=== PATIENT | male | born 1985 | race Caucasian/White ===

== ENCOUNTER 2016-05-02 15:27 | Inpatient (IN) | payer BC, OTHER ==
[~2016-05-02] VITALS: Ht 172.7 cm; Wt 90.4 kg
[~2016-05-02 15:27] MED LIST: /WARF5TA; CEFT500T; ENOX40SY; No Historical Meds; ZITH250T; ZITH500T
[2016-05-02 16:46] LABS: MEAN CORPUSCULAR HEMOGLOBIN 29.2 pg (27.0-33.0); MEAN CORPUSCULAR HGB CONC 34.5 g/dl (32.0-36.5); MEAN CORPUSCULAR VOLUME 84.8 fl (80.0-96.0); RED CELL DISTRIBUTION WIDTH 12.6 % (11.5-14.5); WHITE BLOOD COUNT 6.9 K/mm3 (4.0-10.0)
[2016-05-02 16:55] LABS: AMPHETAMINES LEVEL URINE NEGATIVE (NEGATIVE); BENZODIAZEPINES URINE POSITIVE (NEGATIVE); COCAINE METABOLITE URINE NEGATIVE (NEGATIVE); CONTROL LINE INT CTR LINE PRESENT; METHADONE URINE NEGATIVE (NEGATIVE); OPIATES URINE NEGATIVE (NEGATIVE); TRICYCLIC ANTIDEPRESS URINE NEGATIVE (NEGATIVE)
[2016-05-02 17:19] LABS: ALBUMIN 4.3 GM/DL (3.2-5.2); ALBUMIN/GLOBULIN RATIO 1.54 (1.00-1.93); ALKALINE PHOSPHATASE 67 U/L (45-117); ALT/SGPT 40 U/L (12-78); ANION GAP 6 MEQ/L (8-16); AST/SGOT 23 U/L (15-37); BILIRUBIN,DIRECT 0.1 MG/DL (0.0-0.2); BILIRUBIN,TOTAL 0.4 MG/DL (0.2-1.0); BLOOD UREA NITROGEN 13 MG/DL (7-18); CALCIUM LEVEL 8.8 MG/DL (8.5-10.1); CARBON DIOXIDE LEVEL 34 MEQ/L (21-32); CHLORIDE LEVEL 103 MEQ/L (98-107); CREATININE FOR GFR 0.96 MG/DL (0.70-1.30); GLOMERULAR FILTRATION RATE > 60.0 (>60); GLUCOSE, FASTING 83 MG/DL (70-105); POTASSIUM SERUM 4.4 MEQ/L (3.5-5.1); SODIUM LEVEL 143 MEQ/L (136-145); TOTAL PROTEIN 7.1 GM/DL (6.4-8.2)
--- NOTE | 2016-05-03 07:35 | ECGEPIP ---
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
[2016-05-03] MEDS ORDERED: IBUPROFEN 600 MG TAB As Ordered ONE (09:51)
[2016-05-03] MEDS ORDERED: cloNIDine HCL 0.2 MG/24 HR PATCH TOP ONE (13:00)
[2016-05-03] MEDS ORDERED: SUBO8MIS SL (14:00)
[2016-05-03] MEDS ORDERED: LEXA1TAB2 PO (14:00)
[2016-05-03] MEDS ORDERED: ONDANSETRON 4 MG ORAL DISINTEGRATING TAB (S0181) As Ordered ONE (16:34)
--- NOTE | 2016-05-03 16:58 | EDDOCDS ---
Physician Documentation [facility] Name: Mehrdad Thurman Age: 30 yrs Sex: Male : 1985 Arrival Date: 05/02/2016 Time: 15:27 Bed U4 [facility] MD: Pina Plasencia Disposition: 05/03/16 12:42 Hospitalization ordered by Scar Diaz for Inpatient Admission. Preliminary diagnosis is Major depressive disorder, single episode. - Bed requested for Admit. - Status is Inpatient Admission. rs3 - Condition is Stable. - Problem is an acute exacerbation. - Symptoms are unchanged. Historical: - Allergies: SULFA (SULFONAMIDES); - Home Meds: 1. Suboxone 8-2 mg SL film 1 film once daily (Last dose: 05/02/2016) 2. Lexapro 10 mg Oral tab 1 tab once daily (Last dose: 05/01/2016) - PMHx: Depression; Heroine addict; - PSHx: Vasectomy; - Social history: Smoking status: Patient uses tobacco products, current every day smoker. No barriers to communication noted, The patient speaks fluent Italian. - Family history: Not pertinent. - : The pt / caregiver states he / she is not on anticoagulants. Home medication list is obtained from the patient. - Exposure Risk Screening:: None identified. Vital Signs: 05/02 15:29 BP 133 / 76; Pulse 95; Resp 18 S; Temp 96.8(O); Pulse Ox 100% on R/A; Weight 90.72 kg / gr2 200 lbs (R); Height 5 ft. 8 in. (172.72 cm) (R); Pain 6/10; 19:04 Pulse 59; Resp 16; Temp 97.1(O); Pulse Ox 97% on R/A; ld5 19:05 BP 132 / 82 LA (man/); ld5 19:20 BP 153 / 90 (auto/); ko2 19:22 Pulse 60 MON; Pulse Ox 98% ; ko2 19:30 BP 127 / 80 (auto/); ko2 19:31 Pulse 60 MON; Pulse Ox 96% ; ko2 20:00 BP 117 / 67 (auto/); ko2 20:02 Pulse 61 MON; Pulse Ox 95% ; ko2 20:30 BP 114 / 68 (auto/); ko2 20:30 Pulse 63 MON; Pulse Ox 94% ; ko2 21:00 BP 116 / 63 (auto/); ko2 21:00 Pulse 66 MON; Pulse Ox 93% ; ko2 22:00 BP 105 / 58 (auto/); ko2 22:01 Pulse 63 MON; Pulse Ox 96% ; ko2 22:30 BP 113 / 65 (auto/); ko2 22:30 Pulse 65 MON; Pulse Ox 93% ; ko2 23:00 BP 113 / 65 (auto/); ko2 23:00 Pulse 63 MON; Pulse Ox 95% ; ko2 23:30 BP 120 / 65 (auto/); ko2 23:30 Pulse 68 MON; Pulse Ox 93% ; ko2 05/03 00:00 BP 105 / 60 (auto/); ko2 00:00 Pulse 71 MON; Pulse Ox 96% ; ko2 00:30 BP 104 / 66 (auto/); ko2 00:31 Pulse 68 MON; Pulse Ox 95% ; ko2 01:00 BP 113 / 69 (auto/); ko2 01:01 Pulse 62 MON; Pulse Ox 97% ; ko2 01:30 BP 114 / 64 (auto/); ko2 01:30 Pulse 68 MON; Pulse Ox 94% ; ko2 02:00 BP 109 / 68 (auto/); ko2 02:01 Pulse 61 MON; Pulse Ox 94% ; ko2 02:30 BP 117 / 73 (auto/); ko2 02:31 Pulse 58 MON; Pulse Ox 94% ; ko2 03:00 BP 117 / 73 (auto/); ko2 03:00 Pulse 60 MON; ko2 03:30 BP 116 / 78 (auto/); ko2 03:30 Pulse 56 MON; ko2 06:22 BP 101 / 65; Pulse 87; Resp 16; Temp 96.8(TE); Pulse Ox 95% on R/A; Pain 0/10; rw1 12:30 BP 139 / 88; Pulse 83; Resp 18; Temp 98(T); Pulse Ox 98% on R/A; Pain 0/10; rs3 16:29 BP 140 / 60; Pulse 60; Resp 18; Temp 97.5; Pulse Ox 98% on R/A; Pain 0/10; tmm1 05/02 15:29 Body Mass Index 30.41 (90.72 kg, 172.72 cm) gr2 16:29 pt states he is feeling "a little nauseaous". mental health orderly Bertha Johnson notified . tmm1 MDM: 05/02 16:17 Consult PFS/PSA/Label Fuser Tender ordered. le 16:17 Consult PFS/PSA/Label Fuser Tender: Patient's case requires discussion with on-call le Psychiatrist ordered. 16:17 PSA/PFS to call Nursing Food Beverage Manager, to enter patient data on [place] Safe Act if patient le involuntarily admitted or transferred for SI or HI ordered. 16:17 Confirm accurate psychiatric medication list and times of last dosage ordered. le 16:17 Detain Pt Until Medically/PFS Cleared ordered. le 16:18 Acetaminophen Level Ordered. EDMS 16:18 Basic Metabolic Profile Ordered. EDMS 16:18 Complete Blood Count Ordered. EDMS 16:18 Drug Eval Toxicology ED Only Ordered. EDMS 16:18 Ethyl Alcohol (ethanol) Ordered. EDMS 16:18 Liver Profile Ordered. EDMS 16:18 Salicylate Level Ordered. EDMS 16:18 Thyroid Stimulating Hormone Ordered. EDMS 16:35 REGULAR DIET PLASTIC ORDONEZ+DIET ordered. EDMS 18:32 Consult PFS/PSA/Label Fuser Tender complete. rb 18:55 Drug Eval Toxicology ED Only Reviewed. le 19:03 Call Poison Control ordered. le 19:03 Acetaminophen Level Reviewed. le 19:03 Basic Metabolic Profile Reviewed. le 19:03 Salicylate Level Reviewed. le 19:03 Complete Blood Count Reviewed. le 19:03 Ethyl Alcohol (ethanol) Reviewed. le 19:03 Liver Profile Reviewed. le 19:03 Thyroid Stimulating Hormone Reviewed. le 20:32 ECG WITH READING ER PHYS+CARDIAG ordered. EDMS 05/03 01:20 Financial registration complete. pm4 01:31 [facility] Payment Agreement was scanned into [employer] and attached to record. pm4 04:07 REGULAR DIET PLASTIC ORDONEZ+DIET ordered. EDMS 05:31 Consult PFS/PSA/Label Fuser Tender: Patient's case requires discussion with on-call jfb Psychiatrist complete. 05:32 PSA/PFS to call Nursing Food Beverage Manager, to [place] patient data [place] Safe [place] if patient jfb involuntarily admitted or transferred for SI or HI complete. 05:34 [facility] Legal paperwork was scanned into [employer] and attached to record. jfb 09:53 Ibuprofen 600 mg PO once ordered. js13 12:23 cloNIDine Patch 0.2 mg/24 hr 1 patches Transdermal once ordered. sd1 12:29 REGULAR DIET PLASTIC ORDONEZ+DIET ordered. EDMS 13:01 [facility]: ordered. EDMS 13:59 [facility] Legal paperwork was scanned into [employer] and attached to record. cs 15:53 [facility] Legal paperwork was scanned into [employer] and attached to record. cs 16:04 REGULAR DIET ROOM SERVICE ED+DIET ordered. EDMS 16:32 Ondansetron ODT Oral Disintegrating Tablet 4 mg PO once ordered. sd1 Administered Medications: 09:54 Drug: Ibuprofen 600 mg [ibuprofen 600 mg tablet (1 tabs)] Route: PO; js13 13:22 Drug: cloNIDine Patch 0.2 mg/24 hr 1 patches {Note: right shoulder blade.} Route: rs3 Transdermal; Site: right upper arm; 16:42 Drug: Ondansetron ODT 4 mg [ondansetron 4 mg disintegrating tablet (1 tabs)] Route: PO; rs3 Signatures: Dispatcher [employer] EDVT Keli Oro MD MD sd1 Mateo Spangler, RN RN dwg Leesa Guzmán, PSA PSA rb Cornelius Rangel, PSA PSA cs Deena Grant, POISER POISER Mary Anne Kessler,RN RN rs3 Faviola Barker, PSA PSA jfMaria Del Carmen Timmons RN RN js13 Jennifer RamosRN RN ko2 Rainer Douglas, Reg Reg pm4 The chart was reviewed and I authenticate all verbal orders and agree with the evaluation and treatment provided.Attachments: 01:31 [facility] Payment Agreement pm4 MTDD
--- NOTE | 2016-05-03 16:58 | EDDOCDS ---
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 Status: F Test: ANION GAP; Value: 6; Range: 8-16; Abnormal: Below low normal; Units: MEQ/L; Status: F Test: CALCIUM LEVEL; Value: 8.8; Range: 8.5-10.1; Units: MG/DL; Status: F Test Note: ; Units are mL/min/1.73 m2 Chronic Kidney Disease Staging per NKF: Stage I & II GFR >=60 Normal to Mildly Decreased Stage III GFR 30-59 Moderately Decreased Stage IV GFR 15-29 Severely Decreased Stage V GFR <15 Very Little GFR Left ESRD GFR <15 on CORRECTIONS IDENTIFICATION TECHNICIAN Lab Order: Complete Blood Count; SPEC'M 05/02/16 16:11 Test: WHITE BLOOD COUNT; Value: 6.9; Range: 4.0-10.0; Units: K/mm3; Status: F Test: RED BLOOD COUNT; Value: 5.45; Range: 4.30-6.10; Units: M/mm3; Status: F Test: HEMOGLOBIN; Value: 15.9; Range: 14.0-18.0; Units: g/dl; Status: F Test: HEMATOCRIT; Value: 46.2; Range: 42.0-52.0; Units: %; Status: F Test: MEAN CORPUSCULAR VOLUME; Value: 84.8; Range: 80.0-96.0; Units: fl; Status: F Test: MEAN CORPUSCULAR HEMOGLOBIN; Value: 29.2; Range: 27.0-33.0; Units: pg; Status: F Test: MEAN CORPUSCULAR HGB CONC; Value: 34.5; Range: 32.0-36.5; Units: g/dl; Status: F Test: RED CELL DISTRIBUTION WIDTH; Value: 12.6; Range: 11.5-14.5; Units: %; Status: F Test: PLATELET COUNT, AUTOMATED; Value: 270; Range: 150-450; Units: k/mm3; Status: F Lab Order: Drug Eval Toxicology ED Only; SPEC'M 05/02/16 16:11 Test: AMPHETAMINES LEVEL URINE; Value: NEGATIVE; Range: NEGATIVE; Status: F Test: BARBITURATES URINE; Value: NEGATIVE; Range: NEGATIVE; Status: F Test: BENZODIAZEPINES URINE; Value: POSITIVE; Range: NEGATIVE; Abnormal: Above high normal; Status: F Test: CANNABINOIDS URINE; Value: NEGATIVE; Range: NEGATIVE; Status: F Test: COCAINE METABOLITE URINE; Value: NEGATIVE; Range: NEGATIVE; Status: F Test: METHADONE URINE; Value: NEGATIVE; Range: NEGATIVE; Status: F Test: OPIATES URINE; Value: NEGATIVE; Range: NEGATIVE; Status: F Test: TRICYCLIC ANTIDEPRESS URINE; Value: NEGATIVE; Range: NEGATIVE; Status: F Test Note: ; ALL PRESUMPTIVE POSITIVE FINDINGS ARE UNCONFIRMED NORMAL VALUES THRESHOLD IN NG/ML AMPHETAMINES 1000 METHAMPHETAMINES 1000 BARBITURATES 300 BENZODIAZEPINES 300 CANNABINOIDS (THC) 50 COCAINE METABOLITE 300 METHADONE 300 OPIATES 300 PHENCYCLIDINE 25 TRICYCLIC ANTIDEPRESSANTS 1000 RESULTS ARE FOR MEDICAL PURPOSES ONLY. ALL URINE SPECIMENS WILL BE SAVED FOR 3 DAYS. IF CONFIRMATION OF A PRESUMPTIVE POSTIVE SCREEN RESULT IS DESIRED, CALL CHEMISTRY ([phone]) AND REQUEST URINE TO BE SENT TO REFERENCE LAB. FOR A LIST OF CLOSELY RELATED COMPOUNDS PLEASE CALL THE LAB. Lab Order: Ethyl Alcohol (ethanol); SPEC'M 05/02/16 16:11 Test: ETHYL ALCOHOL (ETHANOL); Value: 0.003; Range: 0.000-0.010; Units: %; Status: F Lab Order: Liver Profile; SPEC'M 05/02/16 16:11 Test: AST/SGOT; Value: 23; Range: 15-37; Units: U/L; Status: F Test: ALT/SGPT; Value: 40; Range: 12-78; Units: U/L; Status: F Test: ALKALINE PHOSPHATASE; Value: 67; Range: 45-117; Units: U/L; Status: F Test: BILIRUBIN,TOTAL; Value: 0.4; Range: 0.2-1.0; Units: MG/DL; Status: F Test: BILIRUBIN,DIRECT; Value: 0.1; Range: 0.0-0.2; Units: MG/DL; Status: F Test: TOTAL PROTEIN; Value: 7.1; Range: 6.4-8.2; Units: GM/DL; Status: F Test: ALBUMIN; Value: 4.3; Range: 3.2-5.2; Units: GM/DL; Status: F Test: ALBUMIN/GLOBULIN RATIO; Value: 1.54; Range: 1.00-1.93; Status: F Lab Order: Salicylate Level; SPEC'M 05/02/16 16:11 Test: SALICYLATE LEVEL; Value: 2.8; Range: 5.0-30.0; Abnormal: Below low normal; Units: MG/DL; Status: F Lab Order: Thyroid Stimulating Hormone; SPEC'M 05/02/16 16:11 Test: THYROID STIMULATING HORMONE; Value: 1.660; Range: 0.358-3.740; Units: uIU/ML; Status: F Radiology Order: EKG-ADULT Test: EKG-ADULT REASON FOR EXAMINATION: OD xanax; Stationary ECG Study; [facility] - ED; ; Test Date: 2016-05-02; Pat Name: LIZANDRO THURMAN Department:; Room: -; Gender: M 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 sd1 16:54 Discharge Assessment: patient administered narcotics - no. The following High Risk rs3 Discharge criteria are identified: None. Admitted to Psych accompanied by tech, family with patient, via wheelchair, with chart. Condition: stable. No special radiology studies were completed. Property :Personal belongings accompany Pt. 16:57 Patient left the ED. rs3 Signatures: Dispatcher [employer] EDMS Keli Oro MD MD sd1 Mateo Spangler, RN Christie Ponce RN Devika Cody, RN SHAYNA [facility] Ramirez, Leesa, PSA PSA rb Cornelius Rangel, PSA PSA Rainer Galan, Security Aide AnkitJoel Alvarenga tr Jossy Bravo,RN RN kr3 Donald Teran,PRODUCTION SAMPLER PRODUCTION SAMPLER rw1 Maxime Ritter, FREIGHT HUSTLER FREIGHT HUSTLER kb5 Deena Grant, NUCLEAR PHYSICIST NUCLEAR PHYSICIST Mary Anne KesslerRN RN rs3 Faviola Barker, PSA PSA jfb Pina Madrid,RN SHAYNA ld5 Maria Del Carmen Willams,RN RN js13 Richie Balderas dpm Jaylin Murguia, FREIGHT HUSTLER FREIGHT HUSTLER tmm1 Russ Velarde gr2 Jennifer RamosRN RN ko2 Kecia Nicholson,RN RN af2 Rainer Douglas, Reg Reg pm4 MTDD
[2016-05-03 17:09] VITALS: BP 140/60
[2016-05-03] MEDS ORDERED: NEUR300C PO (18:05)
[2016-05-03] MEDS ORDERED: MAALOX 30 ML SUSP *UDC PO PRN (18:30)
[2016-05-03] MEDS ORDERED: MOM 30ML SUSPENSION UDC PO PRN (18:30)
[2016-05-03] MEDS ORDERED: LORazepam 2 MG TAB PO PRN (18:30)
[2016-05-03 18:40] VITALS: BP 113/64
[2016-05-03] MEDS: VENLAFAXINE 37.5 MG TAB PO SCH (18:56)
[2016-05-03] MEDS: BUPRENORPHINE/NALOXONE 8-2MG SUBLINGUAL TABLET(SUBOXONE) SL SCH (18:56)
[2016-05-03] MEDS ORDERED: LORazepam 2 MG TAB PO ONE (19:00)
[2016-05-03] MEDS: GABAPENTIN 300 MG CAP PO SCH (22:28)
[2016-05-04 06:27] VITALS: BP 96/52
[2016-05-04 08:00] VITALS: BP 96/52
[2016-05-04] MEDS: BUPRENORPHINE/NALOXONE 8-2MG SUBLINGUAL TABLET(SUBOXONE) SL SCH (09:02)
[2016-05-04] MEDS: GABAPENTIN 300 MG CAP PO SCH ×3 (09:02→20:35)
[2016-05-04] MEDS: VENLAFAXINE 37.5 MG TAB PO SCH (09:02)
[2016-05-04] MEDS: NICOTINE 21MG/24HR 1 EA TRANSDERMAL TD SCH (11:35)
[2016-05-04 18:03] VITALS: BP 126/62
[2016-05-04 18:33] VITALS: BP 126/62
[2016-05-04 20:38] VITALS: BP 139/75
[2016-05-04] MEDS: traZODone 50 MG TAB PO PRN (21:33)
[2016-05-05 06:11] VITALS: BP 119/66
[2016-05-05] MEDS: NICOTINE 21MG/24HR 1 EA TRANSDERMAL TD SCH (08:22)
[2016-05-05] MEDS: GABAPENTIN 300 MG CAP PO SCH ×3 (08:23→20:48)
[2016-05-05] MEDS: VENLAFAXINE 37.5 MG TAB PO SCH (08:23)
[2016-05-05] MEDS: BUPRENORPHINE/NALOXONE 8-2MG SUBLINGUAL TABLET(SUBOXONE) SL SCH (08:23)
[2016-05-05 08:49] VITALS: BP 119/66
--- NOTE | 2016-05-05 17:58 | EDDOCDS ---
Physician Documentation [facility] Name: Mehrdad Thurman Age: 30 yrs Sex: Male : 1985 Arrival Date: 05/02/2016 Time: 15:27 Bed U4 [facility] MD: Pina Plasencia Disposition: 05/03/16 12:42 Hospitalization ordered by Scar Diaz for Inpatient Admission. Preliminary diagnosis is Major depressive disorder, single episode. - Bed requested for Admit. - Status is Inpatient Admission. rs3 - Condition is Stable. - Problem is an acute exacerbation. - Symptoms are unchanged. Historical: - Allergies: SULFA (SULFONAMIDES); - Home Meds: 1. Suboxone 8-2 mg SL film 1 film once daily (Last dose: 05/02/2016) 2. Lexapro 10 mg Oral tab 1 tab once daily (Last dose: 05/01/2016) - PMHx: Depression; Heroine addict; - PSHx: Vasectomy; - Social history: Smoking status: Patient uses tobacco products, current every day smoker. No barriers to communication noted, The patient speaks fluent Swedish. - Family history: Not pertinent. - : The pt / caregiver states he / she is not on anticoagulants. Home medication list is obtained from the patient. - Exposure Risk Screening:: None identified. Vital Signs: 05/02 15:29 BP 133 / 76; Pulse 95; Resp 18 S; Temp 96.8(O); Pulse Ox 100% on R/A; Weight 90.72 kg / gr2 200 lbs (R); Height 5 ft. 8 in. (172.72 cm) (R); Pain 6/10; 19:04 Pulse 59; Resp 16; Temp 97.1(O); Pulse Ox 97% on R/A; ld5 19:05 BP 132 / 82 LA (man/); ld5 19:20 BP 153 / 90 (auto/); ko2 19:22 Pulse 60 MON; Pulse Ox 98% ; ko2 19:30 BP 127 / 80 (auto/); ko2 19:31 Pulse 60 MON; Pulse Ox 96% ; ko2 20:00 BP 117 / 67 (auto/); ko2 20:02 Pulse 61 MON; Pulse Ox 95% ; ko2 20:30 BP 114 / 68 (auto/); ko2 20:30 Pulse 63 MON; Pulse Ox 94% ; ko2 21:00 BP 116 / 63 (auto/); ko2 21:00 Pulse 66 MON; Pulse Ox 93% ; ko2 22:00 BP 105 / 58 (auto/); ko2 22:01 Pulse 63 MON; Pulse Ox 96% ; ko2 22:30 BP 113 / 65 (auto/); ko2 22:30 Pulse 65 MON; Pulse Ox 93% ; ko2 23:00 BP 113 / 65 (auto/); ko2 23:00 Pulse 63 MON; Pulse Ox 95% ; ko2 23:30 BP 120 / 65 (auto/); ko2 23:30 Pulse 68 MON; Pulse Ox 93% ; ko2 05/03 00:00 BP 105 / 60 (auto/); ko2 00:00 Pulse 71 MON; Pulse Ox 96% ; ko2 00:30 BP 104 / 66 (auto/); ko2 00:31 Pulse 68 MON; Pulse Ox 95% ; ko2 01:00 BP 113 / 69 (auto/); ko2 01:01 Pulse 62 MON; Pulse Ox 97% ; ko2 01:30 BP 114 / 64 (auto/); ko2 01:30 Pulse 68 MON; Pulse Ox 94% ; ko2 02:00 BP 109 / 68 (auto/); ko2 02:01 Pulse 61 MON; Pulse Ox 94% ; ko2 02:30 BP 117 / 73 (auto/); ko2 02:31 Pulse 58 MON; Pulse Ox 94% ; ko2 03:00 BP 117 / 73 (auto/); ko2 03:00 Pulse 60 MON; ko2 03:30 BP 116 / 78 (auto/); ko2 03:30 Pulse 56 MON; ko2 06:22 BP 101 / 65; Pulse 87; Resp 16; Temp 96.8(TE); Pulse Ox 95% on R/A; Pain 0/10; rw1 12:30 BP 139 / 88; Pulse 83; Resp 18; Temp 98(T); Pulse Ox 98% on R/A; Pain 0/10; rs3 16:29 BP 140 / 60; Pulse 60; Resp 18; Temp 97.5; Pulse Ox 98% on R/A; Pain 0/10; tmm1 05/02 15:29 Body Mass Index 30.41 (90.72 kg, 172.72 cm) gr2 16:29 pt states he is feeling "a little nauseaous". data entry Bertha Johnson notified . tmm1 MDM: 05/02 16:17 Consult PFS/PSA/Design Consultant ordered. le 16:17 Consult PFS/PSA/Design Consultant: Patient's case requires discussion with on-call le Psychiatrist ordered. 16:17 PSA/PFS to call Nursing Founder And Chief Technical Officer, to enter patient data on [place] if patient le involuntarily admitted or transferred for SI or HI ordered. 16:17 Confirm accurate psychiatric medication list and times of last dosage ordered. le 16:17 Detain Pt Until Medically/PFS Cleared ordered. le 16:18 Acetaminophen Level Ordered. EDMS 16:18 Basic Metabolic Profile Ordered. EDMS 16:18 Complete Blood Count Ordered. EDMS 16:18 Drug Eval Toxicology ED Only Ordered. EDMS 16:18 Ethyl Alcohol (ethanol) Ordered. EDMS 16:18 Liver Profile Ordered. EDMS 16:18 Salicylate Level Ordered. EDMS 16:18 Thyroid Stimulating Hormone Ordered. EDMS 16:35 REGULAR DIET PLASTIC ORDONEZ+DIET ordered. EDMS 18:32 Consult PFS/PSA/Design Consultant complete. rb 18:55 Drug Eval Toxicology ED Only Reviewed. le 19:03 Call Poison Control ordered. le 19:03 Acetaminophen Level Reviewed. le 19:03 Basic Metabolic Profile Reviewed. le 19:03 Salicylate Level Reviewed. le 19:03 Complete Blood Count Reviewed. le 19:03 Ethyl Alcohol (ethanol) Reviewed. le 19:03 Liver Profile Reviewed. le 19:03 Thyroid Stimulating Hormone Reviewed. le 20:32 ECG WITH READING ER PHYS+CARDIAG ordered. EDMS 05/03 01:20 Financial registration complete. pm4 01:31 [facility] Payment Agreement was scanned into [employer] and attached to record. pm4 04:07 REGULAR DIET PLASTIC ORDONEZ+DIET ordered. EDMS 05:31 Consult PFS/PSA/Design Consultant: Patient's case requires discussion with on-call jfb Psychiatrist complete. 05:32 PSA/PFS to call Nursing Founder And Chief Technical Officer, to enter [place] if patient jfb involuntarily admitted or transferred for SI or HI complete. 05:34 [facility] Legal paperwork was scanned into [employer] and attached to record. jfb 09:53 Ibuprofen 600 mg PO once ordered. js13 12:23 cloNIDine Patch 0.2 mg/24 hr 1 patches Transdermal once ordered. sd1 12:29 REGULAR DIET PLASTIC ORDONEZ+DIET ordered. EDMS 13:01 Admit to [facility]: ordered. EDMS 13:59 [facility] Legal paperwork was scanned into [employer] and attached to record. cs 15:53 [facility] Legal paperwork was scanned into [employer] and attached to record. cs 16:04 REGULAR DIET ROOM SERVICE ED+DIET ordered. EDMS 16:32 Ondansetron ODT Oral Disintegrating Tablet 4 mg PO once ordered. sd1 05/04 08:54 T-Sheet-- Draft Copy was scanned into [employer] and attached to record. [facility] 09:30 ECG/EKG was scanned into [employer] and attached to record. gb Administered Medications: 05/03 09:54 Drug: Ibuprofen 600 mg [ibuprofen 600 mg tablet (1 tabs)] Route: PO; js13 13:22 Drug: cloNIDine Patch 0.2 mg/24 hr 1 patches {Note: right shoulder blade.} Route: rs3 Transdermal; Site: right upper arm; 16:42 Drug: Ondansetron ODT 4 mg [ondansetron 4 mg disintegrating tablet (1 tabs)] Route: PO; rs3 Signatures: Dispatcher [employer] EDWV Keli Oro MD MD sd1 Mateo Spangler, RN RN dwg Leesa Guzmán, PSA PSA rb Cornelius Rangel, PSA PSA cs Nirmala Brewer, Reg Reg gb Deena Grant, SALES DESIGNER Mary Anne GillespieRN RN rs3 Faviola Barker, PSA PSA Maria Del Carmen PadillaRN RN js13 Jennifer RamosRN RN Keli Nails Paul, Reg Reg pm4 The chart was reviewed and I authenticate all verbal orders and agree with the evaluation and treatment provided.Attachments: 01:31 [facility] [place] Agreement pm4 05/04 08:54 T-Sheet-- Draft Copy [facility] 09:30 ECG/EKG gb Chart Complete MTDD
--- NOTE | 2016-05-05 17:58 | EDDOCDS ---
Physician Documentation [facility] Name: Mehrdad Thurman Age: 30 yrs Sex: Male : 1985 Arrival Date: 05/02/2016 Time: 15:27 Bed U4 [facility] MD: Pina Plasencia Disposition: 05/03/16 12:42 Hospitalization ordered by Scar Diaz for Inpatient Admission. Preliminary diagnosis is Major depressive disorder, single episode. - Bed requested for Admit. - Status is Inpatient Admission. rs3 - Condition is Stable. - Problem is an acute exacerbation. - Symptoms are unchanged. Historical: - Allergies: SULFA (SULFONAMIDES); - Home Meds: 1. Suboxone 8-2 mg SL film 1 film once daily (Last dose: 05/02/2016) 2. Lexapro 10 mg Oral tab 1 tab once daily (Last dose: 05/01/2016) - PMHx: Depression; Heroine addict; - PSHx: Vasectomy; - Social history: Smoking status: Patient uses tobacco products, current every day smoker. No barriers to communication noted, The patient speaks fluent Bulgarian. - Family history: Not pertinent. - : The pt / caregiver states he / she is not on anticoagulants. Home medication list is obtained from the patient. - Exposure Risk Screening:: None identified. Vital Signs: 05/02 15:29 BP 133 / 76; Pulse 95; Resp 18 S; Temp 96.8(O); Pulse Ox 100% on R/A; Weight 90.72 kg / gr2 200 lbs (R); Height 5 ft. 8 in. (172.72 cm) (R); Pain 6/10; 19:04 Pulse 59; Resp 16; Temp 97.1(O); Pulse Ox 97% on R/A; ld5 19:05 BP 132 / 82 LA (man/); ld5 19:20 BP 153 / 90 (auto/); ko2 19:22 Pulse 60 MON; Pulse Ox 98% ; ko2 19:30 BP 127 / 80 (auto/); ko2 19:31 Pulse 60 MON; Pulse Ox 96% ; ko2 20:00 BP 117 / 67 (auto/); ko2 20:02 Pulse 61 MON; Pulse Ox 95% ; ko2 20:30 BP 114 / 68 (auto/); ko2 20:30 Pulse 63 MON; Pulse Ox 94% ; ko2 21:00 BP 116 / 63 (auto/); ko2 21:00 Pulse 66 MON; Pulse Ox 93% ; ko2 22:00 BP 105 / 58 (auto/); ko2 22:01 Pulse 63 MON; Pulse Ox 96% ; ko2 22:30 BP 113 / 65 (auto/); ko2 22:30 Pulse 65 MON; Pulse Ox 93% ; ko2 23:00 BP 113 / 65 (auto/); ko2 23:00 Pulse 63 MON; Pulse Ox 95% ; ko2 23:30 BP 120 / 65 (auto/); ko2 23:30 Pulse 68 MON; Pulse Ox 93% ; ko2 05/03 00:00 BP 105 / 60 (auto/); ko2 00:00 Pulse 71 MON; Pulse Ox 96% ; ko2 00:30 BP 104 / 66 (auto/); ko2 00:31 Pulse 68 MON; Pulse Ox 95% ; ko2 01:00 BP 113 / 69 (auto/); ko2 01:01 Pulse 62 MON; Pulse Ox 97% ; ko2 01:30 BP 114 / 64 (auto/); ko2 01:30 Pulse 68 MON; Pulse Ox 94% ; ko2 02:00 BP 109 / 68 (auto/); ko2 02:01 Pulse 61 MON; Pulse Ox 94% ; ko2 02:30 BP 117 / 73 (auto/); ko2 02:31 Pulse 58 MON; Pulse Ox 94% ; ko2 03:00 BP 117 / 73 (auto/); ko2 03:00 Pulse 60 MON; ko2 03:30 BP 116 / 78 (auto/); ko2 03:30 Pulse 56 MON; ko2 06:22 BP 101 / 65; Pulse 87; Resp 16; Temp 96.8(TE); Pulse Ox 95% on R/A; Pain 0/10; rw1 12:30 BP 139 / 88; Pulse 83; Resp 18; Temp 98(T); Pulse Ox 98% on R/A; Pain 0/10; rs3 16:29 BP 140 / 60; Pulse 60; Resp 18; Temp 97.5; Pulse Ox 98% on R/A; Pain 0/10; tmm1 05/02 15:29 Body Mass Index 30.41 (90.72 kg, 172.72 cm) gr2 16:29 pt states he is feeling "a little nauseaous". side panel padder Bertha Johnson notified . tmm1 MDM: 05/02 16:17 Consult PFS/PSA/Debt Collection Specialist ordered. le 16:17 Consult PFS/PSA/Debt Collection Specialist: Patient's case requires discussion with on-call le Psychiatrist ordered. 16:17 PSA/PFS to call Nursing Front Desk Clerk, to enter [place] data [place] if patient le involuntarily admitted or transferred for SI or HI ordered. 16:17 Confirm accurate psychiatric medication list and times of last dosage ordered. le 16:17 Detain Pt Until Medically/PFS Cleared ordered. le 16:18 Acetaminophen Level Ordered. EDMS 16:18 Basic Metabolic Profile Ordered. EDMS 16:18 Complete Blood Count Ordered. EDMS 16:18 Drug Eval Toxicology ED Only Ordered. EDMS 16:18 Ethyl Alcohol (ethanol) Ordered. EDMS 16:18 Liver Profile Ordered. EDMS 16:18 Salicylate Level Ordered. EDMS 16:18 Thyroid Stimulating Hormone Ordered. EDMS 16:35 REGULAR DIET PLASTIC ORDONEZ+DIET ordered. EDMS 18:32 Consult PFS/PSA/Debt Collection Specialist complete. rb 18:55 Drug Eval Toxicology ED Only Reviewed. le 19:03 Call Poison Control ordered. le 19:03 Acetaminophen Level Reviewed. le 19:03 Basic Metabolic Profile Reviewed. le 19:03 Salicylate Level Reviewed. le 19:03 Complete Blood Count Reviewed. le 19:03 Ethyl Alcohol (ethanol) Reviewed. le 19:03 Liver Profile Reviewed. le 19:03 Thyroid Stimulating Hormone Reviewed. le 20:32 ECG WITH READING ER PHYS+CARDIAG ordered. EDMS 05/03 01:20 Financial registration complete. pm4 01:31 [facility] Payment Agreement was scanned into [employer] and attached to record. pm4 04:07 REGULAR DIET PLASTIC ORDONEZ+DIET ordered. EDMS 05:31 Consult PFS/PSA/Debt Collection Specialist: Patient's case requires discussion with on-call jfb Psychiatrist complete. 05:32 PSA/PFS to call Nursing Front Desk Clerk, to enter [place] if patient jfb involuntarily admitted or transferred for SI or HI complete. 05:34 [facility] Legal paperwork was scanned into [employer] and attached to record. jfb 09:53 Ibuprofen 600 mg PO once ordered. js13 12:23 cloNIDine Patch 0.2 mg/24 hr 1 patches Transdermal once ordered. sd1 12:29 REGULAR DIET PLASTIC ORDONEZ+DIET ordered. EDMS 13:01 Admit to [facility]: ordered. EDMS 13:59 [facility] Legal paperwork was scanned into [employer] and attached to record. cs 15:53 [facility] Legal paperwork was scanned into [employer] and attached to record. cs 16:04 REGULAR DIET ROOM SERVICE ED+DIET ordered. EDMS 16:32 Ondansetron ODT Oral Disintegrating Tablet 4 mg PO once ordered. sd1 05/04 08:54 T-Sheet-- Draft Copy was scanned into [employer] and attached to record. [facility] 09:30 ECG/EKG was scanned into [employer] and attached to record. gb Administered Medications: 05/03 09:54 Drug: Ibuprofen 600 mg [ibuprofen 600 mg tablet (1 tabs)] Route: PO; js13 13:22 Drug: cloNIDine Patch 0.2 mg/24 hr 1 patches {Note: right shoulder blade.} Route: rs3 Transdermal; Site: right upper arm; 16:42 Drug: Ondansetron ODT 4 mg [ondansetron 4 mg disintegrating tablet (1 tabs)] Route: PO; rs3 Signatures: Dispatcher [employer] EDSC Keli Oro MD MD sd1 Mateo Spangler, RN RN dwg Leesa Guzmán, PSA PSA rb Cornelius Rangel, PSA PSA cs Nirmala Brewer, Reg Reg gb Deena Grant, HEAD KNITTING MACHINE FIXER Mary Anne GillespieRN RN rs3 Faviola Barker, PSA PSA Maria Del Carmen PadillaRN RN js13 Jennifer RamosRN RN Keli Nails Paul, Reg Reg pm4 The chart was reviewed and I authenticate all verbal orders and agree with the evaluation and treatment provided.Attachments: 01:31 [facility] Payment Agreement pm4 05/04 08:54 T-Sheet-- Draft Copy [facility] 09:30 ECG/EKG gb Chart Complete MTDD
--- NOTE | 2016-05-05 17:59 | EDDOCDS ---
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 LEVEL; Value: 34; Range: 21-32; Abnormal: Above high normal; Units: MEQ/L; Status: F Test: ANION GAP; Value: 6; Range: 8-16; Abnormal: Below low normal; Units: MEQ/L; Status: F Test: CALCIUM LEVEL; Value: 8.8; Range: 8.5-10.1; Units: MG/DL; Status: F Test Note: ; Units are mL/min/1.73 m2 Chronic Kidney Disease Staging per NKF: Stage I & II GFR >=60 Normal to Mildly Decreased Stage III GFR 30-59 Moderately Decreased Stage IV GFR 15-29 Severely Decreased Stage V GFR <15 Very Little GFR Left ESRD GFR <15 on LABEL PRINTER Lab Order: Complete Blood Count; SPEC'M 05/02/16 16:11 Test: WHITE BLOOD COUNT; Value: 6.9; Range: 4.0-10.0; Units: K/mm3; Status: F Test: RED BLOOD COUNT; Value: 5.45; Range: 4.30-6.10; Units: M/mm3; Status: F Test: HEMOGLOBIN; Value: 15.9; Range: 14.0-18.0; Units: g/dl; Status: F Test: HEMATOCRIT; Value: 46.2; Range: 42.0-52.0; Units: %; Status: F Test: MEAN CORPUSCULAR VOLUME; Value: 84.8; Range: 80.0-96.0; Units: fl; Status: F Test: MEAN CORPUSCULAR HEMOGLOBIN; Value: 29.2; Range: 27.0-33.0; Units: pg; Status: F Test: MEAN CORPUSCULAR HGB CONC; Value: 34.5; Range: 32.0-36.5; Units: g/dl; Status: F Test: RED CELL DISTRIBUTION WIDTH; Value: 12.6; Range: 11.5-14.5; Units: %; Status: F Test: PLATELET COUNT, AUTOMATED; Value: 270; Range: 150-450; Units: k/mm3; Status: F Lab Order: Drug Eval Toxicology ED Only; SPEC'M 05/02/16 16:11 Test: AMPHETAMINES LEVEL URINE; Value: NEGATIVE; Range: NEGATIVE; Status: F Test: BARBITURATES URINE; Value: NEGATIVE; Range: NEGATIVE; Status: F Test: BENZODIAZEPINES URINE; Value: POSITIVE; Range: NEGATIVE; Abnormal: Above high normal; Status: F Test: CANNABINOIDS URINE; Value: NEGATIVE; Range: NEGATIVE; Status: F Test: COCAINE METABOLITE URINE; Value: NEGATIVE; Range: NEGATIVE; Status: F Test: METHADONE URINE; Value: NEGATIVE; Range: NEGATIVE; Status: F Test: OPIATES URINE; Value: NEGATIVE; Range: NEGATIVE; Status: F Test: TRICYCLIC ANTIDEPRESS URINE; Value: NEGATIVE; Range: NEGATIVE; Status: F Test Note: ; ALL PRESUMPTIVE POSITIVE FINDINGS ARE UNCONFIRMED NORMAL VALUES THRESHOLD IN NG/ML AMPHETAMINES 1000 METHAMPHETAMINES 1000 BARBITURATES 300 BENZODIAZEPINES 300 CANNABINOIDS (THC) 50 COCAINE METABOLITE 300 METHADONE 300 OPIATES 300 PHENCYCLIDINE 25 TRICYCLIC ANTIDEPRESSANTS 1000 RESULTS ARE FOR MEDICAL PURPOSES ONLY. ALL URINE SPECIMENS WILL BE SAVED FOR 3 DAYS. IF CONFIRMATION OF A PRESUMPTIVE POSTIVE SCREEN RESULT IS DESIRED, CALL CHEMISTRY ([phone]) AND REQUEST URINE TO BE SENT TO REFERENCE LAB. FOR A LIST OF CLOSELY RELATED COMPOUNDS PLEASE CALL THE LAB. Lab Order: Ethyl Alcohol (ethanol); SPEC'M 05/02/16 16:11 Test: ETHYL ALCOHOL (ETHANOL); Value: 0.003; Range: 0.000-0.010; Units: %; Status: F Lab Order: Liver Profile; SPEC'M 05/02/16 16:11 Test: AST/SGOT; Value: 23; Range: 15-37; Units: U/L; Status: F Test: ALT/SGPT; Value: 40; Range: 12-78; Units: U/L; Status: F Test: ALKALINE PHOSPHATASE; Value: 67; Range: 45-117; Units: U/L; Status: F Test: BILIRUBIN,TOTAL; Value: 0.4; Range: 0.2-1.0; Units: MG/DL; Status: F Test: BILIRUBIN,DIRECT; Value: 0.1; Range: 0.0-0.2; Units: MG/DL; Status: F Test: TOTAL PROTEIN; Value: 7.1; Range: 6.4-8.2; Units: GM/DL; Status: F Test: ALBUMIN; Value: 4.3; Range: 3.2-5.2; Units: GM/DL; Status: F Test: ALBUMIN/GLOBULIN RATIO; Value: 1.54; Range: 1.00-1.93; Status: F Lab Order: Salicylate Level; SPEC'M 05/02/16 16:11 Test: SALICYLATE LEVEL; Value: 2.8; Range: 5.0-30.0; Abnormal: Below low normal; Units: MG/DL; Status: F Lab Order: Thyroid Stimulating Hormone; SPEC'M 05/02/16 16:11 Test: THYROID STIMULATING HORMONE; Value: 1.660; Range: 0.358-3.740; Units: uIU/ML; Status: F Radiology Order: EKG-ADULT Test: EKG-ADULT REASON FOR EXAMINATION: OD xanax; Stationary ECG Study; [facility] - ED; ; Test Date: 2016-05-02; Pat Name: LIZANDRO GIRDLETREE Department:; Room: -; Gender: M Educational Program Director: RENATA; : 1985 Requested By: DEENA MARS; Order Number: [id number] Reading MD: Keli Oro; Measurements; Intervals [place]; Rate: 66 P: 31; AK: 160 QRS: 39; QRSD: 104 T: 29; QT: 397; QTc: 419; Interpretive Statements; SINUS RHYTHM; RIGHT VENTICULAR DELAY; NO PRIOR FOR COMPARISON; Electronically Signed On 05-03-2016 7:34:59 EST by Keli Oro; Outcome: 05/03 12:42 Decision to Hospitalize by Provider. sd1 16:54 Discharge Assessment: patient administered narcotics - no. The following High Risk rs3 Discharge criteria are identified: None. Admitted to Psych accompanied by tech, family with patient, via wheelchair, with chart. Condition: stable. No special radiology studies were completed. Property :Personal belongings accompany Pt. 16:57 Patient left the ED. rs3 Signatures: Dispatcher [employer] EDMS Keli Oro MD MD sd1 Mateo Spangler RN RN dwg Newman, Jill New RN Devika Cody RN RN mcp Baxter, Leesa, PSA PSA rb Cornelius Rangel, PSA PSA cs Nirmala Brewer, Reg Reg gb Rainer Galan, Security Aide Joel Baltazar KathleenRN RN kr3 Donald Teran,TIMBER CUTTER TIMBER CUTTER rw1 Maxime Ritter, FRAME WELDER [employer]IL[employer] FRAME WELDER [employer] TRAILERS kb5 Deena Grant, Mary Anne PowellRN SHAYNA rs3 Faviola Barker, PSA PSA Pina Parker RN RN ld5 Maria Del Carmen WillamsRN RN js13 Richie Balderas dpm Jaylin Murguia, FRAME WELDER [employer] FRAME WELDER [employer] tmm1 Russ Velarde gr2 Jennifer Ramos,RN RN mark2 Kecia Nicholson,RN RN oscar2 Keli Leal Paul, Reg Reg pm4 Chart Complete MTDD
[2016-05-05 18:00] VITALS: BP 130/68
[2016-05-05] MEDS: traZODone 50 MG TAB PO PRN (20:48)
[2016-05-05 21:03] VITALS: BP 126/72
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
--- NOTE | 2016-05-05 23:38 | IPNPDOC ---
[facility] Progress Note Progress Note DATE OF SERVICE: 05/05/16 Subjective: Patient reports his mood as better this morning. Patient has been compliant with that occasion, he denies medication side effects. Patient denies headache, chest pain, abdominal pain. He reports urination and bowel movements are within normal limits. Patient reports that he continues to feel frustrated about his loss of sober time. He realizes that he is jeopardizing his family with his continued drug use. Patient reports his is very supportive. Patient denies suicidal and homicidal ideations. He denies perceptual issues and none were noted. Patient has been no behavioral issues on the unit. Objective: CURRENT MEDICATIONS: See below. MENTAL STATUS EXAMINATION: Patient is a 30-year-old male who appears stated age, dressed in hospital attire, in no acute distress Speech: Is regular rate and rhythm, spontaneous Thought processes: [Linear, Goal directed]. Thought content: [hoping to get into an outpt program to maintain his sobriety]. Description of abnormal or psychotic thoughts: [No perceptual issues noted or reported]. Judgment: [fair]. Insight: [fair] Orientation to [time, place and person]. Recent and remote memory: [Intact]. Immediate short-term and long-term memory is: [intact]. Attention span and concentration: [fair]. Language: [Normal]. Fund of knowledge: [good]. Mood: [okay]. Affect: [depressed/anxious ]. PROBLEM LIST: 1. [Substance abuse]. 2. [Depression]. 3. [poor impulse control]. ASSESSMENT: [ 1. Depressive disorder, unspecified 2. Benzodiazepine use disorder 3. Opiate use disorder in partial remission 4. Cannabis use disorder in sustained remission INITIAL TREATMENT PLAN: [ 1.~ ~ Patient was admitted on a 9.30 legal status, 2.~ ~ Complete history was obtained. 3.~ ~ With patients permission, family will be contacted and database will be expanded. 4.~ ~Continue venlafaxine 75 mg by mouth daily for depressive symptoms, And change accordingly. 5.~ ~ Patient will be provided with protected environment. 6.~ ~ Patient will be treated with individual, group, and milieu therapies. TIME SPENT: [30] minutes. Vital Signs Vital Signs Date Time Temp Pulse Resp B/P Pulse Ox O2 Delivery O2 Flow Rate FiO2 05/05/16 21:03 97.9 80 16 126/72 Current Medications Current Medications Medications (Trade) Dose Ordered Sig/Kathy Route PRN Reason Start Time Stop Time Status Last Admin Dose Admin Acetaminophen (Tylenol Tab) 650 mg Q6HP PRN PO HEADACHE or DISCOMFORT 05/03/16 18:30 06/02/16 18:29 Al Hydrox/Mg Hydrox/Simethicone (Mylanta) 30 ml Q4HP PRN PO HEARTBURN/INDIGESTION 05/03/16 18:30 06/02/16 18:29 Buprenorphine/ Naloxone (Suboxone 8/2mg) 1 tab DAILY SL 05/03/16 09:00 05/10/16 08:59 05/05/16 08:23 Gabapentin (Neurontin) 300 mg TID PO 05/03/16 21:00 06/02/16 20:59 05/05/16 20:48 Home Med (Med Rec Complete!) ASDIRECTED XX 05/03/16 14:15 05/03/16 14:15 DC Lorazepam (Ativan) 2 mg ASDIRECTED PRN PO SEE PROTOCOL 05/03/16 18:30 05/10/16 18:29 Magnesium Hydroxide (Milk Of Magnesia) 30 ml DAILYPRN PRN PO CONSTIPATION 05/03/16 18:30 06/02/16 18:29 Nicotine (Nicoderm Cq 21mg) 1 patch DAILY TD 05/04/16 09:00 06/03/16 08:59 05/05/16 08:22 Trazodone HCl (Desyrel) 50 mg QHSP PRN PO INSOMNIA 05/03/16 18:30 06/02/16 18:29 05/05/16 20:48 Venlafaxine HCl (Effexor) 75 mg DAILY PO 05/03/16 09:00 06/02/16 08:59 05/05/16 08:23 Allergies Coded Allergies: Sulfa Antibiotics (Unverified Allergy, Intermediate, SWELLING / HIVES, ) KATEY ADAME MD May 05, 2016 23:38 (Effexor) 75 mg DAILY PO 05/03/16 09:00 06/02/16 08:59 05/05/16 08:23 Allergies Coded Allergies: Sulfa Antibiotics (Unverified Allergy, Intermediate, SWELLING / HIVES, ) KATEY ADAME MD May 05, 2016 23:38
[2016-05-06 06:55] VITALS: BP 100/59
[2016-05-06] MEDS: VENLAFAXINE 37.5 MG TAB PO SCH (08:32)
[2016-05-06] MEDS: NICOTINE 21MG/24HR 1 EA TRANSDERMAL TD SCH (08:32)
[2016-05-06] MEDS: BUPRENORPHINE/NALOXONE 8-2MG SUBLINGUAL TABLET(SUBOXONE) SL SCH (08:32)
[2016-05-06] MEDS: GABAPENTIN 300 MG CAP PO SCH ×3 (08:32→20:58)
[2016-05-06] MEDS: BACITRACIN OINT 30GM TOP SCH ×2 (08:34→20:59)
--- NOTE | 2016-05-06 08:48 | HPE ---
DATE: 05/06/2016 Please refer to the psychiatric history and evaluation for further details on this admission. This examination and history is intended for medical issues which may need treatment, follow-up or consultation on this 30-year-old male. PRIMARY CARE PROVIDER: Dr. Pina Plasencia ALLERGIES: SULFA. PAST MEDICAL HISTORY: Depression, hepatitis C, was treated with HARVONI by Dr. Quesada, 2008 he had a deep venous thrombosis (DVT) in the left arm which was treated. He had a history of heroin addiction, currently on Suboxone. PAST SURGICAL HISTORY: Tonsillectomy, vasectomy. LABORATORY STUDIES: CBC was normal. Sodium 143. Potassium 4.4. Chloride 103. CO2 34. Urine positive for benzodiazepines. BUN and creatinine 13.0 and 0.96. AST 23. ALT 40. SOCIAL HISTORY: He is with four children. He states he has had no alcohol for about 3 months. He has a long standing history of heroin addiction and is currently on Suboxone. States he has not used any heroin for 6 years. He occasionally has smoked marijuana and most currently he has been using Xanax that he has bought off the street. HOME MEDICATIONS: - Suboxone 8-2 one sublingual daily - Lexapro 20 mg by mouth at bedtime - gabapentin 300 mg by mouth twice a day ALLERGIES: SULFA. FAMILY HISTORY: Noncontributory. REVIEW OF SYSTEMS: Essentially unremarkable. Patient had no physical complaints other than a slight redness in his left antecubital from where they took blood, otherwise he was feeling well medically. PHYSICAL EXAMINATION: 30-year-old obese cooperative male in no acute distress. Height 68 inches. Weight 89.6 kg. Body mass index (BMI) 32. Blood pressure 126/72. Pulse 80. Respirations 16. Temperature 97.5. The patient is alert and oriented times three. Pupils equal and reactive to light. Extraocular movements intact. Cornea and sclera clear. Conjunctiva normal. No facial asymmetry. Pharynx, tongue and gums pink and moist. Tongue is midline. Neck is supple, without lymphadenopathy. No thyromegaly. No goiter. Chest clear to auscultation, without wheeze or retraction. Heart is regular. Abdomen benign. Bowel sounds positive. Genitourinary ()/Rectal: Not done. Extremities show equal strength. Full range of motion. No cyanosis, clubbing or edema. Left antecubital has a small reddened area from the jaw. Peripheral pulses equal and palpable bilaterally. IMPRESSION AND PLAN: 1. Psychiatric. Plan per psychiatry. 2. Bacitracin to blood draw site twice a day. Monitor for increasing redness. 3. EKG shows sinus rhythm. 4. Nicotine patch available.
[2016-05-06 18:00] VITALS: BP 144/82
[2016-05-06] MEDS: traZODone 50 MG TAB PO PRN (20:58)
[2016-05-07 06:41] VITALS: BP 133/86
[2016-05-07] MEDS: NICOTINE 21MG/24HR 1 EA TRANSDERMAL TD SCH (08:43)
[2016-05-07] MEDS: VENLAFAXINE 37.5 MG TAB PO SCH (08:43)
[2016-05-07] MEDS: BUPRENORPHINE/NALOXONE 8-2MG SUBLINGUAL TABLET(SUBOXONE) SL SCH (08:43)
[2016-05-07] MEDS: GABAPENTIN 300 MG CAP PO SCH ×3 (08:43→20:28)
[2016-05-07] MEDS: BACITRACIN OINT 30GM TOP SCH ×2 (08:44→20:25)
[2016-05-07] MEDS: ACETAMINOPHEN TAB 650MG DOSE (2X325MG) PO PRN ×2 (14:36→20:45)
[2016-05-07 18:00] VITALS: BP 106/72
[2016-05-07] MEDS: traZODone 50 MG TAB PO PRN (20:28)
[2016-05-08 06:35] VITALS: BP 146/82
[2016-05-08] MEDS: BUPRENORPHINE/NALOXONE 8-2MG SUBLINGUAL TABLET(SUBOXONE) SL SCH (08:10)
[2016-05-08] MEDS: VENLAFAXINE 37.5 MG TAB PO SCH (08:10)
[2016-05-08] MEDS: NICOTINE 21MG/24HR 1 EA TRANSDERMAL TD SCH (08:10)
[2016-05-08] MEDS: GABAPENTIN 300 MG CAP PO SCH ×3 (08:10→20:25)
[2016-05-08] MEDS: BACITRACIN OINT 30GM TOP SCH ×2 (09:00→20:24)
[2016-05-08 15:22] LABS: AMPHETAMINES LEVEL URINE NEGATIVE (NEGATIVE); BENZODIAZEPINES URINE NEGATIVE (NEGATIVE); COCAINE METABOLITE URINE NEGATIVE (NEGATIVE); CONTROL LINE INT CTR LINE PRESENT; METHADONE URINE NEGATIVE (NEGATIVE); OPIATES URINE NEGATIVE (NEGATIVE); TRICYCLIC ANTIDEPRESS URINE NEGATIVE (NEGATIVE)
[2016-05-08 18:00] VITALS: BP 145/75
[2016-05-08] MEDS: traZODone 50 MG TAB PO PRN (20:25)
[2016-05-09 06:48] VITALS: BP 130/64
[2016-05-09] MEDS: NICOTINE 21MG/24HR 1 EA TRANSDERMAL TD SCH (08:23)
[2016-05-09] MEDS: VENLAFAXINE 37.5 MG TAB PO SCH (08:23)
[2016-05-09] MEDS: GABAPENTIN 300 MG CAP PO SCH (08:23)
[2016-05-09] MEDS: BUPRENORPHINE/NALOXONE 8-2MG SUBLINGUAL TABLET(SUBOXONE) SL SCH (08:23)
[2016-05-09] MEDS: BACITRACIN OINT 30GM TOP SCH (08:23)
[2016-05-09] MEDS ORDERED: NICO21PAT TD (08:48)
[2016-05-09] MEDS: ACETAMINOPHEN TAB 650MG DOSE (2X325MG) PO PRN (12:22)
[2016-05-09] MEDS ORDERED: GABA300C3 PO (14:33)
[2016-05-09] MEDS ORDERED: TRAZO50TA PO (14:33)
[2016-05-09] MEDS ORDERED: VENL37TA PO (14:33)
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
== END 2016-05-09 12:50 | disposition home or self-care (01) | DRG 754 ==
LOC: M ED 15:27 → M PSY 05-03 17:06
PROVIDERS: ADMIT Psychiatry & Neurology Psychiatry; ATTEND Psychiatry & Neurology Psychiatry
DX: F32.9 Major depressive disorder, single episode, unspecified (principal); F12.21 Cannabis dependence, in remission; F11.10 Opioid abuse, uncomplicated; T42.4X1A Poisoning by benzodiazepines, accidental (unintentional), initial encounter; Z56.0 Unemployment, unspecified; Y92.019 Unspecified place in single-family (private) house as the place of occurrence of the external cause; Z91.14 Patient's other noncompliance with medication regimen; Z79.899 Other long term (current) drug therapy; F17.210 Nicotine dependence, cigarettes, uncomplicated

== ENCOUNTER 2016-11-04 16:34 | Emergency (ER) | payer BC, OTHER ==
[~2016-11-04] VITALS: Ht 172.7 cm; Wt 96.0 kg
[~2016-11-04 16:34] MED LIST changes: +GABA-282 PO; +LEXA1TAB2 PO; +NEUR300C PO; +NICO21PAT TD; +SUBO8MIS SL; +TRAZO50TA PO; +VENL37TA PO
[2016-11-04 17:01] VITALS: BP 137/84
[2016-11-04] MEDS ORDERED: SERT-138 (17:09)
[2016-11-04] MEDS ORDERED: BUSP30TA (17:09)
[2016-11-04] MEDS ORDERED: TRAZ-136 (17:09)
[2016-11-04] MEDS ORDERED: GABA600T PO (17:09)
== END 2016-11-04 19:41 | disposition home or self-care (01) ==
LOC: M ED 16:34
DX: F41.8 Other specified anxiety disorders (principal); Z60.9 Problem related to social environment, unspecified; F11.10 Opioid abuse, uncomplicated; Z72.0 Tobacco use

== ENCOUNTER 2016-11-07 16:38 | Emergency (ER) | payer OTHER ==
[~2016-11-07] VITALS: Ht 172.7 cm; Wt 95.2 kg
[~2016-11-07 16:38] MED LIST changes: +BUSP30TA; +GABA600T PO; +SERT-138; +TRAZ-136
[2016-11-07 18:52] LABS: MEAN CORPUSCULAR HEMOGLOBIN 30.1 pg (27.0-33.0); MEAN CORPUSCULAR HGB CONC 35.7 g/dl (32.0-36.5); MEAN CORPUSCULAR VOLUME 84.3 fl (80.0-96.0); RED CELL DISTRIBUTION WIDTH 12.8 % (11.5-14.5); WHITE BLOOD COUNT 8.1 K/mm3 (4.0-10.0)
[2016-11-07 19:01] LABS: INR 0.85
[2016-11-07 19:10] LABS: METHADONE URINE NEGATIVE (NEGATIVE)
[2016-11-07 19:22] LABS: ALBUMIN 4.4 GM/DL (3.2-5.2); ALBUMIN/GLOBULIN RATIO 1.52 (1.00-1.93); ALKALINE PHOSPHATASE 62 U/L (45-117); ALT/SGPT 34 U/L (12-78); ANION GAP 8 MEQ/L (8-16); AST/SGOT 23 U/L (15-37); BILIRUBIN,DIRECT 0.1 MG/DL (0.0-0.2); BILIRUBIN,TOTAL 0.4 MG/DL (0.2-1.0); BLOOD UREA NITROGEN 17 MG/DL (7-18); CALCIUM LEVEL 9.5 MG/DL (8.5-10.1); CARBON DIOXIDE LEVEL 32 MEQ/L (21-32); CHLORIDE LEVEL 104 MEQ/L (98-107); CREATININE FOR GFR 0.98 MG/DL (0.70-1.30); GLOMERULAR FILTRATION RATE > 60.0 (>60); GLUCOSE, FASTING 87 MG/DL (70-105); POTASSIUM SERUM 4.4 MEQ/L (3.5-5.1); SODIUM LEVEL 144 MEQ/L (136-145); TOTAL PROTEIN 7.3 GM/DL (6.4-8.2)
[2016-11-07 19:43] VITALS: BP 154/98
--- NOTE | 2016-11-07 21:40 | ECGEPIP ---
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
== END 2016-11-07 19:50 | disposition home or self-care (01) ==
LOC: M ED 16:38
DX: F13.10 Sedative, hypnotic or anxiolytic abuse, uncomplicated (principal); B18.2 Chronic viral hepatitis C; Z72.0 Tobacco use; F12.10 Cannabis abuse, uncomplicated
CPT/HCPCS: 36415; 80048; 80076; 80307; 84443; 85027; 85610; 93005; 99284; G0480

== ENCOUNTER → 2018-05-26 | Outpatient (REF) | payer OTHER ==
[~2018-05-26] MED LIST changes: -GABA-282 PO; +GABA-843 PO; -GABA600T PO; +GABA600T4 PO; -TRAZ-136; +TRAZ-163
[2018-05-26 15:58] LABS: INFLUENZA A AMPLIFICATION POSITIVE (NEGATIVE); INFLUENZA B AMPLIFICATION NEGATIVE (NEGATIVE)
== END ==
LOC: M LAB REF 15:11
PROVIDERS: ATTEND Physician Assistant Medical
DX: J11.1 Influenza due to unidentified influenza virus with other respiratory manifestations (principal)

== ENCOUNTER → 2018-09-14 | Outpatient (CLI) | payer OTHER ==
[~2018-09-14] MED LIST changes: -/WARF5TA; +COUM1TAB17; -ENOX40SY; +LOVE1INJ; +TRAZ1TAB10 PO; -TRAZO50TA PO
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
== END ==
LOC: M RAD 17:10
PROVIDERS: ATTEND Physician Assistant
DX: Z87.442 Personal history of urinary calculi (principal); M47.896 Other spondylosis, lumbar region

== ENCOUNTER → 2018-09-18 | Outpatient (CLI) | payer OTHER | LOC: M OUTALCOH 08:59 | PROVIDERS: ATTEND Psychiatry & Neurology Psychiatry | DX: Z03.89 Encounter for observation for other suspected diseases and conditions ruled out (principal) ==

== ENCOUNTER 2018-09-25 07:52 | Outpatient (RCR) | payer OTHER | END 2018-10-04 | LOC: M OUTALCOH 07:52 | PROVIDERS: ATTEND Psychiatry & Neurology Psychiatry | DX: Z03.89 Encounter for observation for other suspected diseases and conditions ruled out (principal); F17.200 Nicotine dependence, unspecified, uncomplicated ==

== ENCOUNTER 2020-02-22 11:03 | Emergency (ER) | payer OTHER ==
[~2020-02-22] VITALS: Ht 167.6 cm; Wt 72.0 kg
[~2020-02-22 11:03] MED LIST changes: -TRAZ-163; +TRAZ-257
[2020-02-22] MEDS ORDERED: SUBO12MI (11:25)
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
[2020-02-22 13:02] VITALS: BP 147/81
[2020-02-22 13:12] LABS: BASO # 0.1 10^3/uL (0.0-0.2); BASO % 0.8 % (0.0-1.0); EOS # 0.1 10^3/uL (0.0-0.5); EOS % 1.3 % (0.0-3.0); HEMATOCRIT 48.2 % (42.0-52.0); HEMOGLOBIN 16.1 g/dl (13.5-17.5); LYMPH # 1.8 10^3/uL (1.5-5.0); LYMPH % 29.1 % (24.0-44.0); MEAN CORPUSCULAR HEMOGLOBIN 29.3 pg (27.0-33.0); MEAN CORPUSCULAR HGB CONC 33.4 g/dl (32.0-36.5); MEAN CORPUSCULAR VOLUME 87.6 fl (80.0-96.0); MONO # 0.7 10^3/uL (0.0-0.8); MONO % 11.8 % (0.0-5.0); NEUTROPHILS # 3.4 10^3/uL (1.5-8.5); NEUTROPHILS % 56.5 % (36.0-66.0); PLATELET COUNT, AUTOMATED 268 10^3/uL (150-450); WHITE BLOOD COUNT 6.1 10^3/uL (4.0-10.0)
[2020-02-22] MEDS ORDERED: BOOSTRIX/ADACEL VACCINE (DIPHTH/PERTUSS/ACELL/TETANUS) 0.5ML SYR IM ONE (13:15)
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
[2020-02-22 13:42] LABS: BLOOD UREA NITROGEN 19 MG/DL (7-18); CALCIUM LEVEL 9.5 MG/DL (8.5-10.1); CARBON DIOXIDE LEVEL 32 MEQ/L (21-32); CHLORIDE LEVEL 106 MEQ/L (98-107); CK-MB VALUE MASS 4.5 NG/ML (<3.6); CPK CREATINE PHOSPHOKINASE 378 U/L (39-308); GLOMERULAR FILTRATION RATE > 60.0 (>60); GLUCOSE, FASTING 68 MG/DL (70-100); MB/CK RELATIVE INDEX 1.19 (< OR =4); POTASSIUM SERUM 4.7 MEQ/L (3.5-5.1); SODIUM LEVEL 140 MEQ/L (136-145); TROPONIN I < 0.02 NG/ML (< 0.10)
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
== END 2020-02-22 14:16 | disposition home or self-care (01) ==
LOC: M ED 11:03
DX: S00.81XA Abrasion of other part of head, initial encounter (principal); S66.911A Strain of unspecified muscle, fascia and tendon at wrist and hand level, right hand, initial encounter; V49.40XA Driver injured in collision with unspecified motor vehicles in traffic accident, initial encounter; Y92.9 Unspecified place or not applicable; Y93.9 Activity, unspecified; Y99.9 Unspecified external cause status; B18.2 Chronic viral hepatitis C; F17.200 Nicotine dependence, unspecified, uncomplicated; F12.10 Cannabis abuse, uncomplicated; R00.1 Bradycardia, unspecified; Z88.1 Allergy status to other antibiotic agents; Z88.2 Allergy status to sulfonamides; F11.20 Opioid dependence, uncomplicated